=== PATIENT | female | born 1975 | race Caucasian/White ===

== ENCOUNTER 2017-04-02 14:01 | Emergency (ER) | payer OTHER ==
[2017-04-02 14:06] VITALS: BP 116/67; PULSE 98; RESP 20; TEMP 97.5
[2017-04-02] MEDS ORDERED: predniSONE 50 MG TAB PO STA (14:25)
[2017-04-02] MEDS ORDERED: diphenhydrAMINE 50 MG CAP PO STA (14:25)
--- NOTE | 2017-04-02 14:32 | ED ---
General Adult HPI - General Chief complaint: Skin/Abscess/Foreign Body Stated complaint: spider bite Time Seen by Provider: 04/02/17 14:21 Source: patient, RN notes reviewed Mode of arrival: ambulatory Limitations: no limitations - History of Present Illness Initial comments: Patient 41-year-old female who presents emergency room today with a chief complaint of spider bite located to the left forearm. She states it happened approximately 8 AM this morning. She states she felt something bite her but did not see what was. She states she had some local reaction to this. She's felt some numbness locally to the left arm. She denies any other complaints or symptoms. Patient denies any recent fever, chills, shortness of breath, chest pain, back pain, abdominal pain, nausea or vomiting, numbness or tingling, dysuria or hematuria, constipation or diarrhea, headaches or visual changes, or any other complaints. - Related Data Previous Rx's Medication Instructions Recorded diphenhydrAMINE [Benadryl] 1 - 2 tab PO Q6HR PRN #30 capsule 04/02/17 predniSONE 40 mg PO DAILY 4 Days 04/02/17 Allergies Allergy/AdvReac Type Severity Reaction Status Date / Time No Known Allergies Allergy Verified 04/02/17 14:22 Review of Systems ROS Statement: Those systems with pertinent positive or pertinent negative responses have been documented in the HPI. ROS Other: All systems not noted in ROS Statement are negative. Past Medical History Past Medical History: Fibromyalgia Additional Past Medical History / Comment(s): DDD, possible MS History of Any Multi-Drug Resistant Organisms: None Reported Past Surgical History: Cholecystectomy, Ear Surgery, Joint Replacement, Orthopedic Surgery Past Psychological History: No Psychological Hx Reported Smoking Status: Current every day smoker Past Alcohol Use History: None Reported Past Drug Use History: None Reported General Exam - General Exam Comments Initial Comments: General: The patient is awake and alert, in no distress, and does not appear acutely ill. Eye: Pupils are equal, round and reactive to light, extra-ocular movements are intact. No nystagmus. There is normal conjunctiva bilaterally. No signs of icterus. Ears, nose, mouth and throat: There are moist mucous membranes and no oral lesions. Neck: The neck is supple, there is no tenderness or JVD. Cardiovascular: There is a regular rate and rhythm. No murmur, rub or gallop is appreciated. Respiratory: Lungs are clear to auscultation, respirations are non-labored, breath sounds are equal. No wheezes, stridor, rales, or rhonchi. Musculoskeletal: Normal ROM, no tenderness. Strength 5/5. Sensation intact. Pulses equal bilaterally 2+. Neurological: A&O x 3. CN II-XII intact, There are no obvious motor or sensory deficits. Coordination appears grossly intact. Speech is normal. Skin: Patient does have local redness to light and the volar aspect of the left forearm. Area of redness measures approximately centimeter across. There is no skin breakdown. No sign of infection. No fluctuance. No sign of a stinger. Psychiatric: Cooperative, appropriate mood & affect, normal judgment. Limitations: no limitations Course Vital Signs 04/02/17 14:04 Temperature 97.5 F L Pulse Rate 98 Respiratory 20 Rate Blood Pressure 116/67 O2 Sat by Pulse 99 Oximetry Medical Decision Making - Medical Decision Making Patient will be treated for a local ALLERGIC reaction. There is no sign of infection at this time. Patient did not witness what bit her caused the bite. Patient will be cheated with steroid and Benadryl. Advised return if any symptoms increase or worsen or for any other concerns. Disposition Clinical Impression: Insect bite Disposition: HOME SELF-CARE Condition: Good Instructions: Insect Bite or Sting (ED) Additional Instructions: Please use medication as discussed. Please follow-up with family doctor in the next 2 days of symptoms have not improved. Please return to emergency room if the symptoms increase or worsen or for any other concerns. Prescriptions: diphenhydrAMINE [Benadryl] 1 - 2 tab PO Q6HR PRN #30 capsule PRN Reason: Allergic Reaction predniSONE 40 mg PO DAILY 4 Days Referrals: De Moyer MD [Primary Care Provider] - 1-2 days Time of Disposition: 14:29
== END 2017-04-02 14:33 | disposition home or self-care (01) ==
LOC: EC 14:01
DX: S50.862A Insect bite (nonvenomous) of left forearm, initial encounter (principal); F17.200 Nicotine dependence, unspecified, uncomplicated; W57.XXXA Bitten or stung by nonvenomous insect and other nonvenomous arthropods, initial encounter
CPT/HCPCS: 99282; J7512

== ENCOUNTER 2019-09-22 23:04 | Emergency (ER) | payer OTHER ==
[2019-09-22 23:42] VITALS: BP 126/83; PULSE 74; RESP 18; TEMP 97.7
[2019-09-23] MEDS ORDERED: KETOROLAC 30 MG/ML 1 ML VIAL IM STA (00:07)
[2019-09-23] MEDS ORDERED: HYDROcodone/APAP 7.5-325MG 1 EACH TAB PO ONE (00:07)
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
--- NOTE | 2019-09-23 00:52 | XR ---
EXAMINATION TYPE: XR shoulder complete LT DATE OF EXAM: 09/23/2019 COMPARISON: NONE HISTORY: Fall. Shoulder pain TECHNIQUE: 3 views FINDINGS: There is no evidence of a fracture. There is significant malalignment of the AC joint. Ther e is 1.7 cm inferior displacement of the acromion. There is no dislocation. IMPRESSION: There is significant tear of the AC ligament. No fracture seen.
--- NOTE | 2019-09-23 00:54 | XR ---
EXAMINATION TYPE: XR cervical spine comp DATE OF EXAM: 09/23/2019 COMPARISON: NONE HISTORY: Pain TECHNIQUE: 5 views FINDINGS: There is normal alignment of the vertebra. There is disc space narrowing at C4-5 with spurr ing. There is less severe spurring at C5-6. Posterior elements are intact. There is neural foraminal impingement at C5-6 due to uncovertebral spurring. Atlantoaxial facet joint is normal. There is a rig ht-sided cervical rib. IMPRESSION: Spondylotic changes in the lower cervical spine. No fracture.
[2019-09-23] MEDS ORDERED: ACET/COD 300 MG/30 MG STARTER PACK 6 TAB BTL PO STA (01:32)
== END 2019-09-23 01:42 | disposition home or self-care (01) ==
LOC: EC 23:04
DX: S43.102A Unspecified dislocation of left acromioclavicular joint, initial encounter (principal); S43.52XA Sprain of left acromioclavicular joint, initial encounter; F17.200 Nicotine dependence, unspecified, uncomplicated; V28.4XXA Motorcycle driver injured in noncollision transport accident in traffic accident, initial encounter; Y93.I9 Activity, other involving external motion; Y92.89 Other specified places as the place of occurrence of the external cause
CPT/HCPCS: 72050; 73030; 99283; 96372; J1885

== ENCOUNTER → 2019-10-07 | Outpatient (CLI) | payer OTHER ==
--- NOTE | 2019-10-10 14:15 | MM ---
Reason for exam: screening (asymptomatic). Physical Findings: A clinical breast exam by your physician is recommended on an annual basis and results should be correlated with mammographic findings. MG Screening Mammo w CAD Bilateral CC and MLO view(s) were taken. The breast tissue is heterogeneously dense. This may lower the sensitivity of mammography. Focal asymmetry left subareolar MLO view only. ASSESSMENT: Incomplete: need additional imaging evaluation, BI-RAD 0 RECOMMENDATION: Special view mammogram of the left breast. If lesion persists on supplemental views, image directed ultrasound is recommended. [facility] will attempt to contact patient to return for supplemental views and ultrasound if indicated.
== END | disposition home or self-care (01) ==
LOC: RADMAMWWP 13:46
PROVIDERS: ATTEND Family Medicine
DX: Z12.31 Encounter for screening mammogram for malignant neoplasm of breast (principal)
CPT/HCPCS: 77067

== ENCOUNTER → 2019-10-24 | Outpatient (CLI) | payer OTHER ==
--- NOTE | 2019-10-24 11:54 | MM ---
Reason for exam: additional evaluation requested from abnormal screening. Last mammogram was performed 1 month ago. Physical Findings: Nurse did not find any significant physical abnormalities on exam. MG 3D Work Up W/Cad LT Spot compression CC, spot compression MLO, and LM view(s) were taken of the left breast. Prior study comparison: October 07, 2019, bilateral MG screening mammo w CAD. The breast tissue is heterogeneously dense. This may lower the sensitivity of mammography. The previously seen abnormality resolves on additional views and appears as fibroglandular tissue compatible with summation. These results were verbally communicated with the patient and result sheet given to the patient on 10/24/19. ASSESSMENT: Negative, BI-RAD 1 RECOMMENDATION: Return to routine screening mammogram schedule for both breasts.
== END | disposition home or self-care (01) ==
LOC: RADMAMWWP 10:16
PROVIDERS: ATTEND Family Medicine
DX: R92.8 Other abnormal and inconclusive findings on diagnostic imaging of breast (principal)
CPT/HCPCS: 77065; G0279; 77061

== ENCOUNTER → 2019-11-03 | Outpatient (CLI) | payer OTHER ==
--- NOTE | 2019-11-03 12:47 | MR ---
EXAMINATION TYPE: MR lumbar spine wo con DATE OF EXAM: 11/03/2019 COMPARISON: None HISTORY: Lumbar vertebral TECHNIQUE: Multiplanar, multisequence images of the lumbar spine were acquired. FINDINGS: The lumbar spine vertebral bodies maintain normal vertebral body heights and alignment. Bon e marrow signal is lower limits of normal. Correlation for anemia is recommended with CBC. Multilevel disc desiccation is seen. Conus medullaris is unremarkable terminating at L2. L1-L2: There is disc desiccation without spinal canal stenosis or neural foraminal narrowing. No foca l disc herniation. L2-L3: There is a right paracentral disc herniation with 1 mm subligamentous disc extrusion in a caud al fashion. There is mild bilateral neural foraminal narrowing without spinal canal stenosis. Minimal facet arthropathy. L3-L4: There is a small broad-based disc bulge without spinal canal stenosis or neural foraminal narr owing. Mild facet arthropathy. L4-L5: There is mild facet arthropathy and a small broad-based disc bulge. No spinal canal stenosis n or neural foraminal narrowing. L5-S1: There is a small right paracentral disc herniation without spinal canal stenosis or neuroforam inal narrowing. Lumbar segments are intact. No paraspinal masses are identified. Conus medullaris has a normal appe arance. IMPRESSION: 1. Right paracentral disc herniation with 1 mm subligamentous caudal disc extrusion at L2-L3. This is superimposed upon a broad-based disc bulge creating mild bilateral neural foraminal narrowing. No sp inal canal stenosis. 2. Small right paracentral disc herniation at L5-S1 without spinal canal stenosis or neuroforaminal n arrowing. 3. Lower limits of normal bone marrow signal on T1-weighted imaging that can be seen in anemia, myelo proliferative disorders, tobacco abuse or chronic systemic medical diseases.
== END | disposition home or self-care (01) ==
LOC: RADMRIMAIN 10:39
PROVIDERS: ATTEND Psychiatry & Neurology Neurology
DX: M48.061 Spinal stenosis, lumbar region without neurogenic claudication (principal); M51.26 Other intervertebral disc displacement, lumbar region; M51.27 Other intervertebral disc displacement, lumbosacral region
CPT/HCPCS: 72148

== ENCOUNTER 2020-01-26 14:50 | Emergency (ER) | payer OTHER ==
[2020-01-26 14:59] VITALS: TEMP 97.6
[2020-01-26] MEDS ORDERED: SODIUM CHLORIDE 0.9% 500 ML 500 ML IV STA (15:21)
[2020-01-26] MEDS ORDERED: MORPHINE SULFATE 4 MG/ML SYRINGE IV STA (15:21)
[2020-01-26] MEDS ORDERED: ONDANSETRON 4 MG/2 ML VIAL IVP STA (15:21)
--- NOTE | 2020-01-26 15:23 | ED ---
General Adult HPI - General Chief complaint: Abdominal Pain Stated complaint: Abd Pain Time Seen by Provider: 01/26/20 15:05 Source: patient Mode of arrival: ambulatory Limitations: no limitations - History of Present Illness Initial comments: Dictation was produced using [employer] dictation software. please excuse any grammatical, word or spelling errors. This patient was cared for during a federal and state declared state of emergency secondary to Covid 19 Chief Complaint: 44-year-old female past medical history of fibromyalgia and chronic pain presents with right lower quadrant abdominal pain 1 day. History of Present Illness: Patient is a 44-year-old female she has past medical history of chronic pain fibromyalgia. Patient takes [place] regularly for diffuse pain. She states that today she's been having right lower quadrant abdominal pain. Patient states she has history of cholecystectomy. She still has her appendix. Denies any fever, chills or night sweats. No vaginal bleeding or vaginal discharge. She does report some rectal pain with bowel movement recently. More concerning her wherever about her right lower quadrant abdominal pain. The ROS documented in this emergency department record has been reviewed and confirmed by me. Those systems with pertinent positive or negative responses have been documented in the HPI. All other systems are other negative and/or noncontributory. PHYSICAL EXAM: General Impression: Alert and oriented x3, not in acute distress HEENT: Normocephalic atraumatic, extra-ocular movements intact, pupils equal and reactive to light bilaterally, mucous membranes moist. Cardiovascular: Heart regular rate and rhythm Chest: Able to complete full sentences, no retractions, no tachypnea Abdomen: abdomen soft, tender McBurney's point, no rebound tenderness, negative Rovsing's Musculoskeletal: Pulses present and equal in all extremities, no peripheral edema Motor: no focal deficits noted Neurological: CN II-XII grossly intact, no focal motor or sensory deficits noted Skin: Intact with no visualized rashes Psych: Normal affect and mood ED course: 44-year-old female presents with right lower quadrant pain 1 day. Vital signs upon arrival are within acceptable limits.Laboratory evaluation obtained. Leukocytosis of 20.8, metabolic panel is unremarkable. Urinalysis s hows 12 red blood cells 1+ ketones. Computed tomography scan of the abdomen and pelvis shows acute uncomplicated diverticulitis. no evidence of acute appendicitis. Patient reevaluated at bedside. She is tolerating oral. She states that her pain is controlled. Patient is amenable for discharge. Return precautions discussed patient told to seek immediate medical attention with fever, worsening abdominal pain or unable to tolerate oral. - Related Data Previous Rx's Medication Instructions Recorded diphenhydrAMINE [Benadryl] 1 - 2 tab PO Q6HR PRN #30 capsule 04/02/17 predniSONE [Deltasone] 40 mg PO DAILY 4 Days tab 04/02/17 Ibuprofen [Motrin] 600 mg PO Q8HR PRN #30 tab 09/23/19 Levofloxacin [Levaquin] 750 mg PO DAILY 7 Days #7 tab 01/26/20 metroNIDAZOLE [Flagyl] 500 mg PO TID 7 Days #21 tab 01/26/20 Allergies Allergy/AdvReac Type Severity Reaction Status Date / Time No Known Allergies Allergy Verified 01/26/20 14:59 Review of Systems ROS Statement: Those systems with pertinent positive or pertinent negative responses have been documented in the HPI. ROS Other: All systems not noted in ROS Statement are negative. Past Medical History Past Medical History: Fibromyalgia Additional Past Medical History / Comment(s): DDD, possible MS History of Any Multi-Drug Resistant Organisms: None Reported Past Surgical History: Cholecystectomy, Ear Surgery, Joint Replacement, Orthopedic Surgery Past Psychological History: No Psychological Hx Reported Smoking Status: Current every day smoker Past Alcohol Use History: None Reported Past Drug Use History: None Reported General Exam Limitations: no limitations Course Vital Signs 01/26/20 01/26/20 14:55 14:59 Temperature 97.6 F Pulse Rate 72 81 Respiratory 18 16 Rate Blood Pressure 124/85 132/89 O2 Sat by Pulse 98 98 Oximetry Medical Decision Making - Lab Data Result diagrams: 01/26/20 15:20 01/26/20 15:20 Lab Results 01/26/20 01/26/20 01/26/20 Range/Units 15:13 15:20 15:20 WBC 17.8 H (3.8-10.6) k/uL RBC 4.70 (3.80-5.40) m/uL Hgb 13.9 (11.4-16.0) gm/dL Hct 40.6 (34.0-46.0) % MCV 86.4 (80.0-100.0) fL MCH 29.5 (25.0-35.0) pg MCHC 34.2 (31.0-37.0) g/dL RDW 12.8 (11.5-15.5) % Plt Count 378 (150-450) k/uL Neutrophils % 78 % Lymphocytes % 17 % Monocytes % 3 % Eosinophils % 2 % Basophils % 0 % Neutrophils # 13.8 H (1.3-7.7) k/uL Lymphocytes # 3.0 (1.0-4.8) k/uL Monocytes # 0.5 (0-1.0) k/uL Eosinophils # 0.4 (0-0.7) k/uL Basophils # 0.1 (0-0.2) k/uL Sodium 137 (137-145) mmol/L Potassium 3.9 (3.5-5.1) mmol/L Chloride 103 (98-107) mmol/L Carbon Dioxide 25 (22-30) mmol/L Anion Gap 9 mmol/L BUN 11 (7-17) mg/dL Creatinine 0.58 (0.52-1.04) mg/dL Est GFR (CKD-EPI)AfAm >90 (>60 ml/min/1.73 sqM) Est GFR (CKD-EPI)NonAf >90 (>60 ml/min/1.73 sqM) Glucose 123 H (74-99) mg/dL Calcium 9.2 (8.4-10.2) mg/dL Total Bilirubin 0.5 (0.2-1.3) mg/dL AST 21 (14-36) U/L ALT 16 (4-34) U/L Alkaline Phosphatase 64 (38-126) U/L Total Protein 7.4 (6.3-8.2) g/dL Albumin 4.4 (3.5-5.0) g/dL Lipase 75 (23-300) U/L Urine Color Dark Yellow Urine Appearance Cloudy H (Clear) Urine pH 5.5 (5.0-8.0) Ur Specific [place] 1.050 H (1.001-1.035) Urine Protein 2+ H (Negative) Urine Glucose (UA) Negative (Negative) Urine Ketones 1+ H (Negative) Urine Blood Moderate H (Negative) Urine Nitrite Negative (Negative) Urine Bilirubin 1+ H (Negative) Urine Urobilinogen 6.0 (<2.0) mg/dL Ur Leukocyte Esterase Small H (Negative) Urine RBC 12 H (0-5) /hpf Urine WBC 5 (0-5) /hpf Ur Squamous Epith Cells 28 H (0-4) /hpf Urine Bacteria Rare H (None) /hpf Urine Mucus Many H (None) /hpf Disposition Clinical Impression: Diverticulitis Disposition: HOME SELF-CARE Prescriptions: metroNIDAZOLE [Flagyl] 500 mg PO TID 7 Days #21 tab Levofloxacin [Levaquin] 750 mg PO DAILY 7 Days #7 tab Is patient prescribed a controlled substance at d/c from ED?: No Referrals: Mary Alice Weaver MD [Primary Care Provider] - 1-2 days Time of Disposition: 17:00
[2020-01-26 15:29] LABS: Basophils # (A) 0.1 k/uL (0-0.2); Basophils % (A) 0 %; Eosinophils # (A) 0.4 k/uL (0-0.7); Eosinophils % (A) 2 %; HCT 40.6 % (34.0-46.0); HGB 13.9 gm/dL (11.4-16.0); Lymphocytes % (A) 17 %; MCH 29.5 pg (25.0-35.0); MCHC 34.2 g/dL (31.0-37.0); MCV 86.4 fL (80.0-100.0); Monocytes # (A) 0.5 k/uL (0-1.0); Monocytes % (A) 3 %; Neutrophils # (A) 13.8 k/uL (1.3-7.7); Neutrophils % (A) 78 %; Platelet Count 378 k/uL (150-450); RDW 12.8 % (11.5-15.5); WBC 17.8 k/uL (3.8-10.6)
[2020-01-26 15:31] LABS: Appearance,Urine Cloudy (Clear); Bacteria,Urine Rare /hpf; Bilirubin,Urine 1+ (Negative); Blood,Urine Moderate (Negative); Color,Urine Dark Yellow; Glucose,Urine (UA) Negative (Negative); Ketones,Urine 1+ (Negative); Leukocyte Esterase,Urine Small (Negative); Mucus,Urine Many /hpf; Nitrite,Urine Negative (Negative); PH, Urine 5.5 (5.0-8.0); Protein,Urine 2+ (Negative); RBC,Urine 12 /hpf (0-5); Squamous Epithelial Cell,Urine 28 /hpf (0-4); WBC,Urine 5 /hpf (0-5)
[2020-01-26 15:40] LABS: ALT 16 U/L (4-34); AST 21 U/L (14-36); African American GFR (CKD) >90 (>60 ml/min/1.73 sqM); Albumin 4.4 g/dL (3.5-5.0); Alkaline Phosphatase 64 U/L (38-126); Anion Gap 9 mmol/L; Blood Urea Nitrogen 11 mg/dL (7-17); Calcium 9.2 mg/dL (8.4-10.2); Carbon Dioxide 25 mmol/L (22-30); Chloride 103 mmol/L (98-107); Glucose 123 mg/dL (74-99); Non-African American GFR(CKD) >90 (>60 ml/min/1.73 sqM); Potassium 3.9 mmol/L (3.5-5.1); Sodium 137 mmol/L (137-145); Total Bilirubin 0.5 mg/dL (0.2-1.3); Total Protein 7.4 g/dL (6.3-8.2)
--- NOTE | 2020-01-26 15:41 | XR ---
EXAMINATION TYPE: XR KUB DATE OF EXAM: 01/26/2020 CLINICAL HISTORY: Abdominal pain, bloating, and difficulty urinating. TECHNIQUE: Single upright abdominal radiograph was obtained. COMPARISON: None. FINDINGS: Cholecystectomy clips are present. Lung bases are well aerated. Very mild dextroscoliosis o f the lumbar spine is seen. Right femoral arthroplasty is present. No dilated large or small bowel. IMPRESSION: Nonobstructive bowel gas pattern.
--- NOTE | 2020-01-26 16:24 | CT ---
EXAMINATION TYPE: CT abdomen pelvis w con DATE OF EXAM: 01/26/2020 HISTORY: Epigastric and RLQ pain for [address] DLP: 1057.6mGycm Automated Exposure Control for Dose Reduction was Utilized. CONTRAST: CT scan of the abdomen and pelvis is performed with IV Contrast, patient injected with 100 mL of [place] ue 300. COMPARISON: None. FINDINGS: LUNG BASES: Calcified benign granuloma the medial right lower lobe. Minimal subsegmental dependent at electasis of the lung bases. Calcified lymph node adjacent to the distal esophagus. LIVER/GB: Hepatic parenchyma is diffusely hypoattenuated in comparison to that of the spleen, most co mmonly seen in hepatic steatosis. This finding limits evaluation for hepatic masses. No gross evidenc e of hepatic mass is seen. No intrahepatic biliary ductal dilatation. Gallbladder is surgically absen t. PANCREAS: No significant abnormality is seen. SPLEEN: Benign splenic parenchymal granulomas. Splenule noted adjacent to the tolowa dee-ni' spleen. ADRENALS: No significant abnormality is seen. KIDNEYS: No significant abnormality is seen. BOWEL: Appendix is air-filled and within normal limits of size. No periappendiceal fat stranding john ge. Mild fat stranding surrounding the sigmoid colon such as on image 73 and 72. Scattered colonic di verticula are seen. No dilated large or small bowel. Bowel is suboptimally evaluated without contrast . LYMPH NODES: No greater than 1cm abdominal or pelvic lymph nodes are appreciated. OSSEOUS STRUCTURES: Right femoral arthroplasty is present. Mild degenerative change of the sacroiliac joints. IMPRESSION: Acute uncomplicated sigmoid diverticulitis. No CT evidence of acute appendicitis.
[2020-01-26 17:04] VITALS: BP 128/68; PULSE 68; RESP 18
== END 2020-01-26 17:07 | disposition home or self-care (01) ==
LOC: EC 14:50
DX: K57.92 Diverticulitis of intestine, part unspecified, without perforation or abscess without bleeding (principal); D72.829 Elevated white blood cell count, unspecified; K62.89 Other specified diseases of anus and rectum; F17.200 Nicotine dependence, unspecified, uncomplicated; Z96.698 Presence of other orthopedic joint implants; Z90.49 Acquired absence of other specified parts of digestive tract
CPT/HCPCS: 99284; 96374; 96375; 96361; 36415; 80053; 83690; 85025; 81001; 74018; 74177; J2270; J2405; Q9967

== ENCOUNTER 2020-02-10 18:30 | Emergency (ER) | payer OTHER ==
[2020-02-10 18:40] VITALS: TEMP 98
[2020-02-10] MEDS ORDERED: MORPHINE SULFATE 4 MG/ML SYRINGE IV STA (18:57)
[2020-02-10] MEDS ORDERED: SODIUM CHLORIDE 0.9% 1,000 ML IV STA (18:57)
[2020-02-10] MEDS ORDERED: PANTOPRAZOLE 40 MG/10 ML VIAL IVP STA (18:57)
--- NOTE | 2020-02-10 19:06 | ED ---
General Adult HPI - General Chief complaint: Headache Stated complaint: fever/nausea Time Seen by Provider: 02/10/20 18:44 Source: patient Mode of arrival: ambulatory Limitations: no limitations - History of Present Illness Initial comments: Patient is a 44-year-old female with history of chronic pain and fibromyalgia presenting to the emergency department with a chief complaint of abdominal pain fever headache. Patient states she was discharged from the ED 2 weeks ago after she was diagnosed with diverticulosis. Patient reports taking all her pre scribed medication, however the pain continues to persist in the same right- sided abdominal region. Does report nausea but denies any vomiting. Does report pain with bowel movements. States she feels bloated but is still able to have regular bowel movements. Denies any hematuria, hematochezia or melena. Denies any urinary or vaginal symptoms. States she had a fever at home but is unaware of the exact temperature. Also reports a headache that began yesterday with a gradual onset. States the headache starts around in the frontal region and wraps around the head to the neck. States she was tired after working long hours yesterday and day before. Patient reports typically she is hypotensive. - Related Data Previous Rx's Medication Instructions Recorded diphenhydrAMINE [Benadryl] 1 - 2 tab PO Q6HR PRN #30 capsule 04/02/17 predniSONE [Deltasone] 40 mg PO DAILY 4 Days tab 04/02/17 Ibuprofen [Motrin] 600 mg PO Q8HR PRN #30 tab 09/23/19 Levofloxacin [Levaquin] 750 mg PO DAILY 7 Days #7 tab 01/26/20 metroNIDAZOLE [Flagyl] 500 mg PO TID 7 Days #21 tab 01/26/20 Dicyclomine [Bentyl] 20 mg PO TID #30 tablet 02/10/20 Simethicone [Gas-X] 125 mg PO DAILY #14 capsule 02/10/20 Allergies Allergy/AdvReac Type Severity Reaction Status Date / Time No Known Allergies Allergy Verified 02/10/20 18:39 Review of Systems ROS Statement: Those systems with pertinent positive or pertinent negative responses have been documented in the HPI. ROS Other: All systems not noted in ROS Statement are negative. Past Medical History Past Medical History: Fibromyalgia Additional Past Medical History / Comment(s): DDD, possible MS History of Any Multi-Drug Resistant Organisms: None Reported Past Surgical History: Cholecystectomy, Ear Surgery, Joint Replacement, Orthopedic Surgery Past Psychological History: No Psychological Hx Reported Smoking Status: Current every day smoker Past Alcohol Use History: None Reported Past Drug Use History: None Reported General Exam Limitations: no limitations General appearance: alert, in no apparent distress, obese Head exam: Present: atraumatic, normocephalic, normal inspection Eye exam: Present: normal appearance, PERRL, EOMI Pupils: Present: normal accommodation ENT exam: Present: normal exam, normal oropharynx, mucous membranes moist Neck exam: Present: normal inspection, full ROM Respiratory exam: Present: normal lung sounds bilaterally Cardiovascular Exam: Present: regular rate, normal rhythm, normal heart sounds GI/Abdominal exam: Present: soft, tenderness (Right-sided abdominal tenderness). Absent: distended, guarding, rebound, rigid Extremities exam: Present: normal inspection, full ROM Back exam: Present: normal inspection, full ROM Neurological exam: Present: alert, oriented X3 Psychiatric exam: Present: normal affect, normal mood Skin exam: Present: warm, dry, intact, normal color Course Vital Signs 02/10/20 02/10/20 18:38 20:21 Temperature 98.0 F Pulse Rate 92 74 Respiratory 20 18 Rate Blood Pressure 99/53 95/65 O2 Sat by Pulse 98 100 Oximetry Medical Decision Making - Medical Decision Making Patient is a 44-year-old female with history of chronic pain and fibromyalgia presenting to the emergency department with a chief complaint of abdominal pain. On exam patient has right-sided abdominal tenderness. Patient was recently diagnosed with diverticulitis and has finished taking Levaquin and Flagyl at home. CBC shows decreasing leukocytosis from around 17k to 12k. Rest of CBC and CMP is unremarkable. UA does show small amounts of blood but no signs of urinary tract infection. Her symptoms do not yield a typical kidney stone presentation. Sure decision making was discussed regarding CT imaging. Patient declined. Patient was given fluids, analgesia and antiemetics. Reevaluation patient reports improving his symptoms. Patient will be discharged with antiemetics and Bentyl. Vitals are stable. States her baseline systolic pressure is in the 90s. Return parameters were thoroughly discussed the patient is a sitting and agreeable. Case discussed with physician. - Lab Data Result diagrams: 02/10/20 18:10 02/10/20 18:10 Lab Results 02/10/20 02/10/2020 Range/Units 18:10 18:10 19:35 WBC 12.9 H (3.8-10.6) k/uL RBC 4.60 (3.80-5.40) m/uL Hgb 13.0 (11.4-16.0) gm/dL Hct 39.7 (34.0-46.0) % MCV 86.2 (80.0-100.0) fL MCH 28.3 (25.0-35.0) pg MCHC 32.8 (31.0-37.0) g/dL RDW 12.9 (11.5-15.5) % Plt Count 371 (150-450) k/uL Neutrophils % 69 % Lymphocytes % 22 % Monocytes % 5 % Eosinophils % 2 % Basophils % 1 % Neutrophils # 9.0 H (1.3-7.7) k/uL Lymphocytes # 2.9 (1.0-4.8) k/uL Monocytes # 0.6 (0-1.0) k/uL Eosinophils # 0.3 (0-0.7) k/uL Basophils # 0.1 (0-0.2) k/uL Sodium 136 L (137-145) mmol/L Potassium 4.3 (3.5-5.1) mmol/L Chloride 100 (98-107) mmol/L Carbon Dioxide 27 (22-30) mmol/L Anion Gap 9 mmol/L BUN 10 (7-17) mg/dL Creatinine 0.73 (0.52-1.04) mg/dL Est GFR (CKD-EPI)AfAm >90 (>60 ml/min/1.73 sqM) Est GFR (CKD-EPI)NonAf >90 (>60 ml/min/1.73 sqM) Glucose 93 (74-99) mg/dL Calcium 9.5 (8.4-10.2) mg/dL Total Bilirubin 0.2 (0.2-1.3) mg/dL AST 18 (14-36) U/L ALT 16 (4-34) U/L Alkaline Phosphatase 54 (38-126) U/L Total Protein 7.2 (6.3-8.2) g/dL Albumin 4.2 (3.5-5.0) g/dL Amylase 59 (30-110) U/L Lipase 79 (23-300) U/L Urine Color Yellow Urine Appearance Clear (Clear) Urine pH 6.5 (5.0-8.0) Ur Specific [place] 1.034 (1.001-1.035) Urine Protein Trace H (Negative) Urine Glucose (UA) Negative (Negative) Urine Ketones Negative (Negative) Urine Blood Moderate H (Negative) Urine Nitrite Negative (Negative) Urine Bilirubin Negative (Negative) Urine Urobilinogen 2.0 (<2.0) mg/dL Ur Leukocyte Esterase Negative (Negative) Urine RBC 26 H (0-5) /hpf Urine WBC 1 (0-5) /hpf Ur Squamous Epith Cells 5 H (0-4) /hpf Urine Bacteria Rare H (None) /hpf Urine Mucus Few H (None) /hpf Disposition Clinical Impression: Tension headache, Abdominal pain Disposition: HOME SELF-CARE Condition: Stable Instructions (If sedation given, give patient instructions): Abdominal Pain (ED) Additional Instructions: Take prescribed medication as directed. Follow up with primary care. Return to emergency department if symptoms worsen. Prescriptions: Dicyclomine [Bentyl] 20 mg PO TID #30 tablet Simethicone [Gas-X] 125 mg PO DAILY #14 capsule Is patient prescribed a controlled substance at d/c from ED?: No Referrals: Mary Alice Weaver MD [Primary Care Provider] - 1-2 days Time of Disposition: 20:52
[2020-02-10 19:39] LABS: Basophils # (A) 0.1 k/uL (0-0.2); Basophils % (A) 1 %; Eosinophils # (A) 0.3 k/uL (0-0.7); Eosinophils % (A) 2 %; HCT 39.7 % (34.0-46.0); Lymphocytes # (A) 2.9 k/uL (1.0-4.8); Lymphocytes % (A) 22 %; MCH 28.3 pg (25.0-35.0); MCHC 32.8 g/dL (31.0-37.0); MCV 86.2 fL (80.0-100.0); Mean Platelet Volume 7.6; Monocytes # (A) 0.6 k/uL (0-1.0); Monocytes % (A) 5 %; Neutrophils % (A) 69 %; Platelet Count 371 k/uL (150-450); RDW 12.9 % (11.5-15.5); WBC 12.9 k/uL (3.8-10.6)
[2020-02-10 19:53] LABS: ALT 16 U/L (4-34); AST 18 U/L (14-36); African American GFR (CKD) >90 (>60 ml/min/1.73 sqM); Albumin 4.2 g/dL (3.5-5.0); Alkaline Phosphatase 54 U/L (38-126); Amylase 59 U/L (30-110); Anion Gap 9 mmol/L; Blood Urea Nitrogen 10 mg/dL (7-17); Calcium 9.5 mg/dL (8.4-10.2); Carbon Dioxide 27 mmol/L (22-30); Chloride 100 mmol/L (98-107); Glucose 93 mg/dL (74-99); Non-African American GFR(CKD) >90 (>60 ml/min/1.73 sqM); Potassium 4.3 mmol/L (3.5-5.1); Sodium 136 mmol/L (137-145); Total Bilirubin 0.2 mg/dL (0.2-1.3); Total Protein 7.2 g/dL (6.3-8.2)
[2020-02-10 20:22] VITALS: BP 95/65; PULSE 74; RESP 18
[2020-02-10 22:30] LABS: Appearance,Urine Clear (Clear); Bacteria,Urine Rare /hpf; Bilirubin,Urine Negative (Negative); Blood,Urine Moderate (Negative); Color,Urine Yellow; Glucose,Urine (UA) Negative (Negative); Ketones,Urine Negative (Negative); Leukocyte Esterase,Urine Negative (Negative); Mucus,Urine Few /hpf; Nitrite,Urine Negative (Negative); PH, Urine 6.5 (5.0-8.0); Protein,Urine Trace (Negative); RBC,Urine 26 /hpf (0-5); Specific Gravity,Urine 1.034 (1.001-1.035); Squamous Epithelial Cell,Urine 5 /hpf (0-4); WBC,Urine 1 /hpf (0-5)
== END 2020-02-10 21:44 | disposition home or self-care (01) ==
LOC: EC 18:30
DX: G44.209 Tension-type headache, unspecified, not intractable (principal); R10.9 Unspecified abdominal pain; R10.819 Abdominal tenderness, unspecified site; F17.200 Nicotine dependence, unspecified, uncomplicated
CPT/HCPCS: 36415; 80053; 82150; 83690; 85025; 81001; 99284; 96374; 96375; 96361; J2270; C9113

== ENCOUNTER → 2020-06-20 | Outpatient (CLI) | payer OTHER ==
--- NOTE | 2020-06-20 15:06 | CT ---
EXAMINATION TYPE: CT iac wo con DATE OF EXAM: 06/20/2020 COMPARISON: NONE HISTORY: right ear drainage CT DLP: 197 mGycm. Automated Exposure Control for Dose Reduction was Utilized. TECHNIQUE: CT scan of internal auditory canal is performed without contrast, thin cut axial images ar e obtained, coronal reformatted images are also reviewed. FINDINGS: The external auditory canals are patent on the left. Some soft tissue density and fluid adal p right aspect near articulation with middle ear ossicles and round window coronal image 116 and axia l image 46 is noted. Unusual bony structure at this level is from middle ear ossicles axial image 49 and should be correlated clinically with prior surgery. Mastoid air cells show no evidence of abnormal opacification on the left. There is prior right tempo ral or mastoid surgical change noted. The middle ear ossicles are unremarkable on the left. There is no evidence of suspicious surrounding soft tissue density to suggest cholesteatoma on the left. The scutum is preserved on the left. Surgical changes on the right is present. No suspicious new sof t tissue surrounding the right middle ear ossicles. The cochlea and the semicircular canals are symmetric and unremarkable. Vestibular aqueduct and inte rnal carotid canal appear unremarkable. Temporomandibular joints are maintained bilaterally. Dependent fluid right maxillary sinus background mild mucosal thickening. [id number] mucosal thickening anterior ethmoid sinuses bilaterally. G lobes are intact bilaterally. Visualized brain parenchyma unremarkable. IMPRESSION: As above.
== END | disposition home or self-care (01) ==
LOC: RADCTMAIN 14:28
PROVIDERS: ATTEND Otolaryngology
DX: R93.89 Abnormal findings on diagnostic imaging of other specified body structures (principal); M79.89 Other specified soft tissue disorders; Z98.890 Other specified postprocedural states
CPT/HCPCS: 70480

== ENCOUNTER → 2020-08-14 | Outpatient (CLI) | payer OTHER ==
[2020-08-14 14:55] LABS: Basophils # (A) 0.1 k/uL (0-0.2); Basophils % (A) 1 %; Eosinophils # (A) 0.1 k/uL (0-0.7); Eosinophils % (A) 1 %; HCT 43.1 % (34.0-46.0); HGB 14.4 gm/dL (11.4-16.0); Lymphocytes # (A) 2.6 k/uL (1.0-4.8); Lymphocytes % (A) 18 %; MCH 29.2 pg (25.0-35.0); MCHC 33.4 g/dL (31.0-37.0); MCV 87.5 fL (80.0-100.0); Monocytes # (A) 0.7 k/uL (0-1.0); Monocytes % (A) 5 %; Neutrophils # (A) 10.7 k/uL (1.3-7.7); Neutrophils % (A) 75 %; Platelet Count 361 k/uL (150-450); RBC 4.92 m/uL (3.80-5.40); RDW 13.1 % (11.5-15.5); WBC 14.4 k/uL (3.8-10.6)
[2020-08-14 21:20] LABS: Hemoglobin A1C 5.4 % (4.0-6.0)
[2020-08-15 05:20] LABS: INR 0.96 (0.90-1.11); Partial Thromboplastin Time 27.2 sec (23.5-31.0); Prothrombin Time 10.4 sec (9.9-11.9)
== END | disposition home or self-care (01) ==
LOC: LABWHC1 13:25
PROVIDERS: ATTEND Otolaryngology
DX: Z00.00 Encounter for general adult medical examination without abnormal findings (principal); Z01.818 Encounter for other preprocedural examination; M79.7 Fibromyalgia; M51.36 Other intervertebral disc degeneration, lumbar region; Z83.3 Family history of diabetes mellitus
CPT/HCPCS: 85025; 85610; 85730; 83036; 36415; U0003

== ENCOUNTER → 2020-09-11 | Outpatient (CLI) | payer OTHER ==
--- NOTE | 2020-09-11 11:13 | US ---
EXAMINATION TYPE: US abdomen complete DATE OF EXAM: 09/11/2020 COMPARISON: CT 02/05/2020 CLINICAL HISTORY: R10.31 RLQ pain, R10.12 LUQ pain. EXAM MEASUREMENTS: Liver Length: 11.2 cm Gallbladder Wall: Surgically absent CBD: 0.6 cm Spleen: 9.6 cm Right Kidney: 10.5 x 4.0 x 4.7 cm Left Kidney: 10.5 x 4.4 x 4.2 cm Patient of large body habitus, technically difficult study. Pancreas: body and tail obscured by bowel gas Liver: Echotexture somewhat coarse Gallbladder: Surgically absent Evidence for sonographic Peraza's sign: no CBD: Mildly prominent Spleen: wnl Right Kidney: partially obscured by overlying bowel gas, portions visualized wnl Left Kidney: wnl Upper IVC: wnl Abd Aorta: partially obscured by overlying bowel gas, no evident aneurysm There is no ascites. The liver is homogenous. The intrahepatic portion of the IVC and proximal abdominal aorta are within normal limits. Common bile duct is slightly dilated. The visualized portions of the pancreas are ho mogenous. The spleen is unremarkable. Kidneys are symmetric and free of hydronephrosis. No renal l esions are seen. IMPRESSION: Correlate for hepatic steatosis, hepatocellular disease. Postcholecystectomy change
== END | disposition home or self-care (01) ==
LOC: RADUSWWP 08:15
PROVIDERS: ATTEND Family Medicine
DX: R10.31 Right lower quadrant pain (principal); R10.12 Left upper quadrant pain; Z90.49 Acquired absence of other specified parts of digestive tract
CPT/HCPCS: 76700

== ENCOUNTER → 2024-08-01 | Outpatient (CLI) | payer MEDICARE ==
--- NOTE | 2024-08-01 14:08 | CT ---
EXAMINATION TYPE: CT chest wo/w con CT DLP: 925.6 mGycm, Automated exposure control for dose reduction was used. DATE OF EXAM: 08/01/2024 1:51 PM COMPARISON: CT low-dose lung 01/23/2023 CLINICAL INDICATION:Female, 49 years old with history of J84.10 PULMONARY FIBROSIS, UNSPECIFIED; PHH, Productive cough x 2 months, history of COPD TECHNIQUE: Multiple axial images were obtained through the chest before and after the uneventful admi nistration of 100 cc of Isovue-300 intravenously . Coronal and sagittal reformats reviewed. FINDINGS: LUNGS/ PLEURA: No pleural effusion, pneumothorax, or focal consolidation. No suspicious pulmonary nod ule mass. Minimal linear scarring within the right middle lobe medially. No significant emphysematou s changes. Minimal right middle lobe peripheral reticulations. No honeycombing or architectural disto rtion. AIRWAY: Patent and unremarkable.. HEART: Size within normal limits. No pericardial effusion. Small coronary artery calcification. MEDIASTINUM: No gross evidence of adenopathy. Right paraesophageal calcified lymph node. VASCULATURE: No aortic aneurysm. Bovine configuration to the aortic arch. Ectasia of the ascending t horacic aorta measuring up to 3.9 cm. MUSCULOSKELETAL: No acute osseous abnormalities. Partial visualization of anterior cervical fusion aguilar rdware. SOFT TISSUES/LYMPH NODES: Unremarkable. LOWER NECK: No significant findings. UPPER ABDOMEN: Gallbladder is surgically absent. Calcified punctate granuloma within the spleen. IMPRESSION: 1. No acute thoracic process. 2. Minimal right middle lobe linear scarring with some subpleural reticular opacities which may repre sent early pulmonary fibrotic change. No honeycombing or architectural distortion. 3. Stable ectasia of the ascending thoracic aorta measuring up to 3.9 cm. [facility], , 08/01/2024 2:06 PM
== END | disposition home or self-care (01) ==
LOC: RADCTMAIN 13:01
PROVIDERS: ATTEND Family Medicine
DX: J84.10 Pulmonary fibrosis, unspecified (principal); J44.9 Chronic obstructive pulmonary disease, unspecified; J98.4 Other disorders of lung; I77.810 Thoracic aortic ectasia
CPT/HCPCS: 71270; Q9967

== ENCOUNTER → 2024-10-13 | Outpatient (CLI) | payer MEDICARE ==
[2024-10-13 19:20] LABS: Urine Alcohol Negative (Negative); Urine Barbiturate Negative (Negative); Urine Cocaine Negative (Negative); Urine Methadone Negative (Negative); Urine Opiates Negative (Negative); Urine Phencyclidine Negative (Negative)
== END | disposition home or self-care (01) ==
LOC: LABWHC1 14:27
PROVIDERS: ATTEND Psychiatry & Neurology Psychiatry
DX: F34.89 Other specified persistent mood disorders (principal); Z79.899 Other long term (current) drug therapy
CPT/HCPCS: 80306